=== PATIENT | female | born 1980 | race Hispanic/Latino ===

== ENCOUNTER 2021-10-07 07:22 | Emergency (ER) | payer BC ==
[~2021-10-07] VITALS: Ht 170.2 cm; Wt 81.6 kg
[~2021-10-07 07:22] MED LIST: CEPH500B PO; PHEN-847 PO
[2021-10-07] MEDS: APAP/CODEINE 120/12MG 5ML PO STA (08:09)
[2021-10-07] MEDS ORDERED: NIRM1TAB PO (08:24)
[2021-10-07 08:38] VITALS: BP 125/68
== END 2021-10-07 08:37 | disposition home or self-care (01) ==
LOC: EDH 07:22
DX: U07.1 COVID-19 (principal)
CPT/HCPCS: 99283; 87635; 87880; 87804 ×2; C9803

== ENCOUNTER 2022-03-23 20:50 | Emergency (ER) | payer BC ==
[~2022-03-23] VITALS: Ht 170.2 cm; Wt 85.3 kg
[~2022-03-23 20:50] MED LIST changes: +NIRM1TAB PO
[2022-03-23 21:50] VITALS: BP 128/79
[2022-03-23] MEDS ORDERED: HC2530O TP (23:29)
[2022-03-23] MEDS ORDERED: DIPH-1242 PO (23:29)
== END 2022-03-23 23:34 | disposition home or self-care (01) ==
LOC: EDH 20:50
DX: L20.9 Atopic dermatitis, unspecified (principal)
CPT/HCPCS: 99281; 99282